=== PATIENT | male | born 2000 | race Hispanic/Latino ===

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

== ENCOUNTER 2021-06-10 17:40 | Emergency (ER) | payer MEDICAID ==
[~2021-06-10] VITALS: Ht 188 cm; Wt 99.8 kg
[2021-06-10] MEDS ORDERED: IBUP-2070 PO (19:04)
[2021-06-10] MEDS ORDERED: ACET-66 PO (19:04)
[2021-06-10] MEDS ORDERED: D-ME118S47 PO (19:04)
[2021-06-10] MEDS ORDERED: IBUPROFEN 400 MG TABLET ONE (19:16)
[2021-06-10] MEDS ORDERED: ACETAMINOPHEN 500 MG TABLET ONE (19:16)
[2021-06-10 19:18] VITALS: BP 160/97
[2021-06-10] MEDS ORDERED: IBUPROFEN 400 MG TABLET PO SCH (19:30)
[2021-06-10] MEDS ORDERED: ACETAMINOPHEN 500 MG TABLET PO ONE (19:30)
== END 2021-06-10 19:51 | disposition home or self-care (01) ==
LOC: EDH 17:40
DX: B34.9 Viral infection, unspecified (principal); Z20.822 Contact with and (suspected) exposure to COVID-19; Z79.1 Long term (current) use of non-steroidal anti-inflammatories (NSAID)
CPT/HCPCS: 87635; 87804 ×2; 87880; 99283; C9803

== ENCOUNTER 2022-04-27 19:45 | Emergency (ER) | payer MEDICAID ==
[~2022-04-27] VITALS: Ht 188 cm; Wt 105.2 kg
[~2022-04-27 19:45] MED LIST: ACET-66 PO; CEPH500B PO; D-ME118S47 PO; IBUP-2070 PO; IBUP-2077 PO
[2022-04-27 19:47] VITALS: BP 142/74
[2022-04-27] MEDS ORDERED: TETANUS/DIPHTHERIA TOXOID [ADULT] 0.5 ML VIAL IM ONE ×2 (20:30→20:52)
[2022-04-27] MEDS ORDERED: HYDROCODONE/ACETAMINOPHEN 10/325 MG TAB PO ONE (20:30)
[2022-04-27] MEDS ORDERED: OCTYL 2-CYANOACRYLATE 1 EACH TP ONE ×2 (21:02→21:49)
== END 2022-04-27 22:02 | disposition home or self-care (01) ==
LOC: EDH 19:45
DX: S61.217A Laceration without foreign body of left little finger without damage to nail, initial encounter (principal); W26.8XXA Contact with other sharp object(s), not elsewhere classified, initial encounter; Y93.89 Activity, other specified; Y92.89 Other specified places as the place of occurrence of the external cause; Y99.8 Other external cause status
CPT/HCPCS: 12001; 90471; 90714